=== PATIENT | female | born 1965 | race Caucasian/White ===

== ENCOUNTER 2023-05-25 17:00 | Inpatient (IN) | payer MEDICARE, OTHER ==
[~2023-05-25] VITALS: Ht 162.6 cm; Wt 94.3 kg
[~2023-05-25 17:00] MED LIST: ALBU2.5V38 NEB; ALBU8.5H8 INH; ASPI81TA31 PO; CLOP75TA15 PO; CLOT15CR27 TP; DIAZ10TA4 PO; DULO60CA45 PO; EMPA25TA PO; FLUT1DIS29 IH; GABA800T11 PO; ISOS30TA86 PO; LEVO500T90 PO; METF-442 PO; METO-358 PO; NITR0.4T48 SL; OXYC-133 PO; PRED20TA PO; ROSU40TA23 PO; SENN8.6T19 PO
[2023-05-25] MEDS ORDERED: ALBUTEROL SULFATE 2.5 MG/3 ML NEBU ONE (17:30)
[2023-05-25] MEDS ORDERED: IPRATROPIUM BROMIDE 0.5 MG/2.5 ML NEBU ONE (17:30)
[2023-05-25] MEDS ORDERED: methylPREDNISolone SOD SUCC 125 MG/2 ML VIAL ONE (17:36)
[2023-05-25] MEDS: methylPREDNISolone SOD SUCC 125 MG/2 ML VIAL IV ONE (17:37)
[2023-05-25 17:40] LABS: ABG BASE EXCESS 4.2 mmol/L (-2.0-2.0); ABG HCO3 33.6 mmol/L (22.0-26.0); ABG PCO2 73.9 mmHg (35.0-48.0); ABG PH 7.276 (7.340-7.440); ABG PO2 75.4 mmHg (75.0-100.0); ABG SITE RIGHT RADIAL; ABG TOTAL HEMOGLOBIN 14.6 G/dL (12.0-16.0); AaDO2 92.8 mmHg; COHb 1.7 % (0.0-3.9); MetHb 0.2 % (0.0-1.5)
[2023-05-25 17:41] LABS: BASOPHILS # (AUTO) 0.7 K/UL (0.0-0.2); EOSINOPHILS # (AUTO) 0.2 K/uL (0.0-0.7); EOSINOPHILS % (AUTO) 1.5 % (0.0-7.0); HEMATOCRIT 42.2 % (31.2-41.9); HEMOGLOBIN 13.8 g/dL (10.9-14.3); LYMPHOCYTES # (AUTO) 1.2 K/uL (0.8-4.8); LYMPHOCYTES % (AUTO) 10.9 % (20.5-51.5); MEAN CORPUSCULAR HEMOGLOBIN 31.5 uug (24.7-32.8); MEAN CORPUSCULAR HGB CONC 33 g/dL (32.3-35.6); MEAN CORPUSCULAR VOLUME 96.1 fL (75.5-95.3); MONOCYTES # (AUTO) 0.6 K/uL (0.1-1.30); MONOCYTES % (AUTO) 5.8 % (0.0-11.0); NEUTROPHILS # (AUTO) 8.4 K/uL (1.8-8.9); NEUTROPHILS % (AUTO) 75.6 % (38.5-71.5); PLATELET COUNT (AUTO) 356 K/uL (179-408); RED BLOOD CELL COUNT(AUTO) 4.39 MIL/uL (3.63-4.92); RED CELL DISTRIBUTION WIDTH 14.9 % (12.3-17.7); WHITE BLOOD COUNT (AUTO) 11.1 K/uL (3.8-11.8)
[2023-05-25 17:49] LABS: DIFFERENTIAL COMMENT 1
[2023-05-25 17:54] LABS: CALCIUM 8.9 mg/dL (8.5-10.1); CARBON DIOXIDE 38 mmol/L (21-32); CHLORIDE 98 mmol/L (98-107); CREATININE 0.4 mg/dL (0.6-1.3); GLUCOSE 58 mg/dL (74-106); POTASSIUM 4.2 mmol/L (3.5-5.1); SODIUM SERUM 138 mmol/L (136-145); UREA NITROGEN, BLOOD 17 mg/dL (7-18)
[2023-05-25] MEDS: IPRATROPIUM BROMIDE 0.5 MG/2.5 ML NEBU NEB ONE (17:55)
[2023-05-25] MEDS: ALBUTEROL SULFATE 2.5 MG/3 ML NEBU NEB ONE (17:55)
[2023-05-25 18:07] LABS: ALANINE AMINOTRANSFERASE 25 U/L (14-59); ALBUMIN 3.1 g/dL (3.4-5.0); ALKALINE PHOSPHATASE 79 U/L (50-136); ASPARTATE AMINOTRANSFERASE 14 U/L (15-37); BILIRUBIN,DIRECT 0.2 mg/dL (0.0-0.2); BILIRUBIN,TOTAL 0.6 mg/dL (0.2-1.0); NT-PRO BNP 348 pg/mL (0-125); TOTAL PROTEIN, SERUM 6.4 g/dL (6.4-8.2)
[2023-05-25] MEDS ORDERED: DEXTROSE 50% 50 ML DISP.SYRIN ONE (18:14)
[2023-05-25] MEDS: DEXTROSE 50% 50 ML DISP.SYRIN IV ONE (18:15)
[2023-05-25] MEDS ORDERED: ENOXAPARIN SODIUM 100 MG/ML DISP.SYRIN SQ ONE (18:29)
[2023-05-25] MEDS: ENOXAPARIN SODIUM 100 MG/ML DISP.SYRIN SQ ONE (18:31)
[2023-05-25] MEDS ORDERED: IPRATROPIUM BROMIDE 0.5 MG/2.5 ML NEBU NEB PRN (19:30)
[2023-05-25] MEDS ORDERED: MAGNESIUM HYDROXIDE 30 ML LIQUID UDC PO PRN (19:30)
[2023-05-25] MEDS ORDERED: SENNOSIDES 1 TABLET PO PRN (19:30)
[2023-05-25] MEDS ORDERED: ONDANSETRON 4 MG/2 ML VIAL IV PRN (19:30)
[2023-05-25] MEDS ORDERED: ALBUTEROL SULFATE 2.5 MG/ 0.5 ML NEBU NEB PRN (19:30)
[2023-05-25] MEDS ORDERED: REMEDY ESSENTIAL ZINC PASTE 113 GM TP PRN (19:30)
[2023-05-25] MEDS ORDERED: DEXTROSE 50% 50 ML DISP.SYRIN IV PRN (19:30)
[2023-05-25] MEDS: IPRATROPIUM BROMIDE 0.5 MG/2.5 ML NEBU NEB SCH (20:56)
[2023-05-25] MEDS: ALBUTEROL SULFATE 2.5 MG/ 0.5 ML NEBU NEB SCH (20:57)
[2023-05-25] MEDS ORDERED: Medication Not On Formulary EA (Rosuvastatin Calcium 40 MG) PO SCH (21:00)
[2023-05-25 21:43] LABS: ABG BASE EXCESS 7.4 mmol/L (-2.0-2.0); ABG HCO3 36.5 mmol/L (22.0-26.0); ABG PCO2 71.8 mmHg (35.0-48.0); ABG PH 7.324 (7.340-7.440); ABG PO2 44.4 mmHg (75.0-100.0); ABG TOTAL HEMOGLOBIN 15.6 G/dL (12.0-16.0); COHb 1.8 % (0.0-3.9); MetHb 0.1 % (0.0-1.5); O2Hb 80.6 % (94.0-97.0)
[2023-05-25] MEDS: methylPREDNISolone SOD SUCC 40 MG/ML VIAL IV SCH (22:00)
[2023-05-25] MEDS: BLOOD SUGAR DIAGNOSTIC 1 EACH STRIP VI SCH (23:15)
[2023-05-26] VITALS (47 sets, daily range): BP systolic 73–151; BP diastolic 19–112; TEMP 97.6–97.8; O2SAT 89–100
[2023-05-26 05:21] LABS: BASOPHILS # (AUTO) 0.1 K/UL (0.0-0.2); BASOPHILS % (AUTO) 1.2 % (0.0-2.0); EOSINOPHILS % (AUTO) 0.1 % (0.0-7.0); HEMATOCRIT 43.6 % (31.2-41.9); HEMOGLOBIN 14.7 g/dL (10.9-14.3); LYMPHOCYTES # (AUTO) 0.7 K/uL (0.8-4.8); LYMPHOCYTES % (AUTO) 18.1 % (20.5-51.5); MEAN CORPUSCULAR HEMOGLOBIN 32.1 uug (24.7-32.8); MEAN CORPUSCULAR HGB CONC 34 g/dL (32.3-35.6); MEAN CORPUSCULAR VOLUME 95.4 fL (75.5-95.3); MONOCYTES % (AUTO) 0.7 % (0.0-11.0); NEUTROPHILS # (AUTO) 3.3 K/uL (1.8-8.9); NEUTROPHILS % (AUTO) 79.9 % (38.5-71.5); PLATELET COUNT (AUTO) 290 K/uL (179-408); RED BLOOD CELL COUNT(AUTO) 4.57 MIL/uL (3.63-4.92); RED CELL DISTRIBUTION WIDTH 14.8 % (12.3-17.7); WHITE BLOOD COUNT (AUTO) 4.1 K/uL (3.8-11.8)
[2023-05-26 05:35] LABS: ABG HCO3 32.6 mmol/L (22.0-26.0); ABG PH 7.305 (7.340-7.440); ABG PO2 134.9 mmHg (75.0-100.0); ABG SITE RIGHT RADIAL; ABG TOTAL HEMOGLOBIN 15.1 G/dL (12.0-16.0); AaDO2 98.4 mmHg; MetHb 0.1 % (0.0-1.5)
[2023-05-26 05:44] LABS: CALCIUM 9.2 mg/dL (8.5-10.1); CARBON DIOXIDE 33 mmol/L (21-32); CHLORIDE 98 mmol/L (98-107); CHOLESTEROL 125 mg/dL (<200); CREATININE 0.4 mg/dL (0.6-1.3); GLUCOSE 95 mg/dL (74-106); HDL CHOLESTEROL 47 mg/dL (40-60); MAGNESIUM 2.3 mg/dL (1.8-2.4); PHOSPHOROUS 4.7 mg/dL (2.5-4.9); POTASSIUM 4.2 mmol/L (3.5-5.1); SODIUM SERUM 139 mmol/L (136-145); TRIGLYCERIDES 87 MG/DL (30-150); UREA NITROGEN, BLOOD 23 mg/dL (7-18)
[2023-05-26 05:53] LABS: THYROID STIMULATING HORMONE 0.147 mIU/mL (0.358-3.740)
[2023-05-26 06:02] LABS: DIFFERENTIAL COMMENT 1
[2023-05-26] MEDS: PANTOPRAZOLE SODIUM 40 MG VIAL IV SCH (08:58)
[2023-05-26] MEDS ORDERED: DULOXETINE 60 MG CAPSULE.DR PO SCH ×2 (09:00)
[2023-05-26] MEDS ORDERED: ISOSORBIDE MONONITRATE 30 MG TAB.SR.24H PO SCH (09:00)
[2023-05-26] MEDS: ASPIRIN 81 MG TAB.CHEW PO SCH (09:22)
[2023-05-26] MEDS: CLOPIDOGREL 75 MG TABLET PO SCH (09:22)
[2023-05-26] MEDS: METOPROLOL SUCCINATE XL 50 MG TAB.SR.24H PO SCH (09:23)
[2023-05-26] MEDS ORDERED: ALPR0.5T8 PO (12:19)
[2023-05-26] MEDS ORDERED: AMLO10TA59 PO (12:19)
[2023-05-26] MEDS ORDERED: INSU100V7 SQ (12:27)
[2023-05-26] MEDS ORDERED: UMEC62.5 IH (12:27)
[2023-05-26] MEDS ORDERED: ATOR80TA PO (12:27)
[2023-05-26] MEDS ORDERED: METH-807 PO (12:35)
[2023-05-26] MEDS ORDERED: NICO-670 TD (12:36)
[2023-05-26] MEDS ORDERED: ALBU2.5V13 NEB (12:41)
[2023-05-26] MEDS ORDERED: IPRA0.2S48 NEB ×2 (12:41)
[2023-05-26] MEDS ORDERED: LIDO30AD10 TD (12:41)
[2023-05-26] MEDS ORDERED: INSU100V39 SQ (12:44)
[2023-05-26] MEDS ORDERED: REMEDY ESSENTIAL ZINC PASTE 113 GM TOP PRN (16:30)
[2023-05-26] MEDS: DULOXETINE 60 MG CAPSULE.DR PO SCH (17:12)
[2023-05-26] MEDS: ACETAMINOPHEN 325 MG TABLET PO PRN (17:13)
[2023-05-26] MEDS ORDERED: GABA-536 PO (17:50)
[2023-05-26] MEDS ORDERED: ROSUVASTATIN CALCIUM 40 MG PO SCH (21:00)
[2023-05-26] MEDS ORDERED: ATORVASTATIN 40 MG TABLET PO SCH (21:00)
[2023-05-26] MEDS: ATORVASTATIN 40 MG TABLET PO SCH (21:17)
[2023-05-26] MEDS: GABAPENTIN 400 MG CAPSULE PO SCH (21:17)
[2023-05-26] MEDS: INSULIN REGULAR, HUMAN 300 UNIT/3 ML VIAL SQ PRN (21:22)
[2023-05-27] VITALS (33 sets, daily range): BP systolic 108–137; BP diastolic 42–83; TEMP 97.5–98.5; O2SAT 91–99
[2023-05-27 05:15] LABS: BASOPHILS # (AUTO) 0.1 K/UL (0.0-0.2); BASOPHILS % (AUTO) 0.9 % (0.0-2.0); HEMATOCRIT 42.2 % (31.2-41.9); LYMPHOCYTES # (AUTO) 0.9 K/uL (0.8-4.8); MEAN CORPUSCULAR HEMOGLOBIN 31.8 uug (24.7-32.8); MEAN CORPUSCULAR HGB CONC 33 g/dL (32.3-35.6); MEAN CORPUSCULAR VOLUME 95.7 fL (75.5-95.3); MONOCYTES # (AUTO) 0.3 K/uL (0.1-1.30); MONOCYTES % (AUTO) 3.6 % (0.0-11.0); NEUTROPHILS # (AUTO) 7.3 K/uL (1.8-8.9); NEUTROPHILS % (AUTO) 85.5 % (38.5-71.5); PLATELET COUNT (AUTO) 361 K/uL (179-408); RED BLOOD CELL COUNT(AUTO) 4.42 MIL/uL (3.63-4.92); RED CELL DISTRIBUTION WIDTH 15.3 % (12.3-17.7); WHITE BLOOD COUNT (AUTO) 8.6 K/uL (3.8-11.8)
[2023-05-27 05:27] LABS: CALCIUM 9.2 mg/dL (8.5-10.1); CREATININE 0.5 mg/dL (0.6-1.3); MAGNESIUM 2.1 mg/dL (1.8-2.4); PHOSPHOROUS 3.2 mg/dL (2.5-4.9); POTASSIUM 4.2 mmol/L (3.5-5.1)
[2023-05-27 05:30] LABS: DIFFERENTIAL COMMENT 1
[2023-05-27 06:22] LABS: ABG BASE EXCESS 4.8 mmol/L (-2.0-2.0); ABG HCO3 29.7 mmol/L (22.0-26.0); ABG PCO2 44.7 mmHg (35.0-48.0); ABG SITE RIGHT RADIAL; AaDO2 94.7 mmHg; COHb 1.1 % (0.0-3.9); MetHb 0.2 % (0.0-1.5); O2Hb 93.9 % (94.0-97.0)
[2023-05-27] MEDS: METOPROLOL SUCCINATE XL 50 MG TAB.SR.24H PO SCH (08:34)
[2023-05-27] MEDS: ISOSORBIDE MONONITRATE 30 MG TAB.SR.24H PO SCH (08:36)
[2023-05-27] MEDS: OXYCODONE/APAP 5-325 MG TABLET PO PRN (15:11)
[2023-05-27] MEDS ORDERED: ALPRAZOLAM 0.5 MG TABLET PO PRN (15:30)
[2023-05-27] MEDS ORDERED: METHOCARBAMOL 750 MG TABLET PO PRN (15:30)
[2023-05-27] MEDS: FLUTICASONE/VILANTEROL 1 EACH BLST.W.DEV INH SCH (16:30)
[2023-05-27] MEDS: CLOTRIMAZOLE 1% CREAM 30 GM TUBE TOP SCH (16:59)
[2023-05-27] MEDS ORDERED: FLUTICASONE/SALMETEROL 500/50 EACH DISK.W.DEV IH SCH (17:00)
[2023-05-27] MEDS: LIDOCAINE 5% PATCH TD SCH (17:14)
[2023-05-27] MEDS: INSULIN REGULAR, HUMAN 300 UNITS/3 ML VIAL SQ PRN (21:05)
[2023-05-27] MEDS: methylPREDNISolone SOD SUCC 40 MG/ML VIAL IV SCH (21:11)
[2023-05-27] MEDS ORDERED: GABAPENTIN 400 MG CAPSULE PO SCH (22:00)
[2023-05-28] VITALS (9 sets, daily range): BP systolic 97–130; BP diastolic 52–67; TEMP 97.1–97.9; O2SAT 95–99
[2023-05-28] MEDS: PANTOPRAZOLE SODIUM 40 MG TABLET.DR PO SCH (06:04)
[2023-05-28 07:18] LABS: BASOPHILS % (AUTO) 0.2 % (0.0-2.0); HEMATOCRIT 39.4 % (31.2-41.9); HEMOGLOBIN 12.8 g/dL (10.9-14.3); LYMPHOCYTES # (AUTO) 0.6 K/uL (0.8-4.8); LYMPHOCYTES % (AUTO) 11.6 % (20.5-51.5); MEAN CORPUSCULAR HEMOGLOBIN 31.6 uug (24.7-32.8); MEAN CORPUSCULAR HGB CONC 33 g/dL (32.3-35.6); MEAN CORPUSCULAR VOLUME 97.1 fL (75.5-95.3); MONOCYTES # (AUTO) 0.2 K/uL (0.1-1.30); MONOCYTES % (AUTO) 3.9 % (0.0-11.0); NEUTROPHILS % (AUTO) 84.3 % (38.5-71.5); PLATELET COUNT (AUTO) 301 K/uL (179-408); RED BLOOD CELL COUNT(AUTO) 4.05 MIL/uL (3.63-4.92); RED CELL DISTRIBUTION WIDTH 15.8 % (12.3-17.7); WHITE BLOOD COUNT (AUTO) 4.7 K/uL (3.8-11.8)
[2023-05-28 07:22] LABS: DIFFERENTIAL COMMENT 1
[2023-05-28 07:35] LABS: CALCIUM 8.6 mg/dL (8.5-10.1); CREATININE 0.7 mg/dL (0.6-1.3); MAGNESIUM 2.3 mg/dL (1.8-2.4); PHOSPHOROUS 3.1 mg/dL (2.5-4.9); POTASSIUM 4.1 mmol/L (3.5-5.1)
[2023-05-28] MEDS: NICOTINE 14 MG/24HR PATCH TD SCH (08:55)
[2023-05-28] MEDS: AMLODIPINE 10 MG TABLET PO SCH (08:56)
[2023-05-28] MEDS: MEDIHONEY= THERAHONEY 1.5 OZ TUBE TOP SCH (08:57)
[2023-05-28] MEDS: predniSONE 20 MG TABLET PO SCH (09:02)
[2023-05-28] MEDS ORDERED: METH4TAB3 PO (12:38)
[2023-05-28] MEDS ORDERED: METFORMIN HCL 500 MG TABLET PO SCH (18:00)
[2023-05-28] MEDS ORDERED: INSULIN GLARGINE,HUM 300 UNITS/3 ML CARTRIDGE SQ SCH (21:00)
== END 2023-05-28 16:40 | DRG 189 ==
LOC: ER 17:03 → CCU 18:22 → TELE3 05-27 20:05
PROVIDERS: ADMIT Nurse Practitioner Acute Care; ATTEND Nurse Practitioner Acute Care
PROC: 5A09357 Assistance with Respiratory Ventilation, Less than 24 Consecutive Hours, Continuous Positive Airway Pressure (ICD-10-PCS; principal; 2023-05-25)
DX: J96.22 Acute and chronic respiratory failure with hypercapnia (principal); G93.41 Metabolic encephalopathy; J44.1 Chronic obstructive pulmonary disease with (acute) exacerbation; L97.812 Non-pressure chronic ulcer of other part of right lower leg with fat layer exposed; E44.1 Mild protein-calorie malnutrition; I50.30 Unspecified diastolic (congestive) heart failure; J96.21 Acute and chronic respiratory failure with hypoxia; Z68.35 Body mass index [BMI] 35.0-35.9, adult; E78.5 Hyperlipidemia, unspecified; G89.4 Chronic pain syndrome; I25.10 Atherosclerotic heart disease of native coronary artery without angina pectoris; Z95.5 Presence of coronary angioplasty implant and graft; Z79.02 Long term (current) use of antithrombotics/antiplatelets; E11.42 Type 2 diabetes mellitus with diabetic polyneuropathy; E11.622 Type 2 diabetes mellitus with other skin ulcer; E11.65 Type 2 diabetes mellitus with hyperglycemia; K21.9 Gastro-esophageal reflux disease without esophagitis; E66.9 Obesity, unspecified; Z79.891 Long term (current) use of opiate analgesic; Z99.81 Dependence on supplemental oxygen; F17.210 Nicotine dependence, cigarettes, uncomplicated; I35.1 Nonrheumatic aortic (valve) insufficiency; S41.102A Unspecified open wound of left upper arm, initial encounter; X58.XXXA Exposure to other specified factors, initial encounter; Y92.129 Unspecified place in nursing home as the place of occurrence of the external cause; E11.51 Type 2 diabetes mellitus with diabetic peripheral angiopathy without gangrene; I70.238 Atherosclerosis of native arteries of right leg with ulceration of other part of lower leg; Z79.82 Long term (current) use of aspirin; Z79.84 Long term (current) use of oral hypoglycemic drugs; Z79.4 Long term (current) use of insulin; I11.0 Hypertensive heart disease with heart failure; I25.2 Old myocardial infarction; Z83.3 Family history of diabetes mellitus; Z86.16 Personal history of COVID-19; Z87.01 Personal history of pneumonia (recurrent); Z98.1 Arthrodesis status; M16.11 Unilateral primary osteoarthritis, right hip; Z82.49 Family history of ischemic heart disease and other diseases of the circulatory system; Z91.81 History of falling; G47.33 Obstructive sleep apnea (adult) (pediatric)
CPT/HCPCS: 36415; 36600; 71045; 82803; 83605; 83735; 84100; 84443; 84484; 85025; 85730; 87040; 93005; 94640; 94660; A4663; C9113; G0378; J1650; J1815; J2920; J2930; J3490; J3590; J7512